=== PATIENT | female | born 1995 | race Two or more races ===

== ENCOUNTER 2023-09-03 08:14 | Emergency (ER) | payer OTHER ==
[~2023-09-03] VITALS: Ht 160 cm; Wt 56.7 kg
[2023-09-03 09:28] VITALS: BP 136/86; TEMP 97.9; O2SAT 98
== END 2023-09-03 09:28 | disposition home or self-care (01) ==
LOC: ER 08:29
DX: R06.02 Shortness of breath (principal); R42 Dizziness and giddiness; F14.10 Cocaine abuse, uncomplicated; F17.200 Nicotine dependence, unspecified, uncomplicated
CPT/HCPCS: 71045-TC